=== PATIENT | male | born 1990 | race African-American/Black ===

== ENCOUNTER 2018-01-29 14:56 | Inpatient (IN) | payer MEDICAID, OTHER ==
[2018-01-29 16:20] LABS: ADD MAN DIFF? NO
[2018-01-29 16:27] LABS: BASOPHIL # 0.2 10^3/ul (0.0-0.1); BASOPHILS % 1.9 % (0.0-2.0); EOSINOPHILS # 0.2 10^3/ul (0.0-0.5); EOSINOPHILS % 1.7 % (0.0-7.0); HEMATOCRIT 32.3 % (42.0-52.0); LYMPHOCYTES # 1.4 10^3/ul (0.8-2.9); LYMPHOCYTES % 15.4 % (15.0-51.0); MEAN CORPUSCULAR HEMOGLOBIN 25.8 pg (29.0-33.0); MEAN CORPUSCULAR VOLUME 83.5 fl (82.0-101.0); MEAN PLATELET VOLUME 11.7 fl (7.4-10.4); MONOCYTE # 0.9 10^3/ul (0.3-0.9); MONOCYTES % 9.5 % (0.0-11.0); NEUTROPHIL # 6.5 10^3/ul (1.6-7.5); NEUTROPHILS % 71.3 % (39.0-77.0); PLATELET COUNT 255 10^3/UL (140-415); RED BLOOD COUNT 3.87 10^6/ul (4.70-6.10); RED CELL DISTRIBUTION WIDTH 14.7 % (11.5-14.5)
[2018-01-29 16:27] LABS: WHITE BLOOD COUNT 9.2 10^3/ul (4.8-10.8)
[2018-01-29] MEDS: ASPIRIN 325 MG TAB PO (16:41)
[2018-01-29] MEDS: NITROGLYCERIN 2% 1 GM OINT PKT TD (16:41)
[2018-01-29 16:43] LABS: ALANINE AMINOTRANSFERASE 23 IU/L (13-69); ALBUMIN 4.2 g/dl (3.3-4.9); ALKALINE PHOSPHATASE 72 IU/L (42-121); ANION GAP 13 (8-16); ASPARTATE AMINO TRANSFERASE 22 IU/L (15-46); BILIRUBIN,INDIRECT 0.1 mg/dl (0-1.1); BILIRUBIN,TOTAL 0.1 mg/dl (0.2-1.3); BLOOD UREA NITROGEN 55 mg/dl (7-20); CALCIUM 7.9 mg/dl (8.4-10.2); CARBON DIOXIDE 23 mmol/L (21-31); CHLORIDE 113 mmol/L (97-110); CREATINE KINASE 564 IU/L (23-200); GLUCOSE 100 mg/dl (70-220); SODIUM 145 mmol/L (135-144); TOTAL PROTEIN 7.2 g/dl (6.1-8.1)
[2018-01-29 16:46] LABS: INR 0.93; PROTIME 12.6 Sec (11.9-14.9)
[2018-01-29 16:47] LABS: PARTIAL THROMBOPLASTIN TIME 26.8 Sec (25.0-35.0)
[2018-01-29 16:55] LABS: B-TYPE NATRIURETIC PEPTIDE 12500 PG/ML (0-125); CK INDEX 0.6; CK-MB 3.33 ng/ml (0.0-2.4); TROPONIN-I 0.074 ng/ml (0.000-0.120)
[2018-01-29 16:58] LABS: ETHANOL < 10.0 mg/dl
[2018-01-29 16:59] LABS: D-DIMER 674.44 ng/ml (<460)
[2018-01-29 17:14] LABS: AMPHETAMINE/METHAMPHETAMINE Negative (NEGATIVE); BARBITURATES Negative (NEGATIVE); BENZODIAZEPINES Negative (NEGATIVE); CANNABINOIDS Negative (NEGATIVE); COCAINE Negative (NEGATIVE); OPIATES Negative (NEGATIVE)
[2018-01-29 17:16] LABS: LACTIC ACID 0.9 mmol/L (0.5-2.0)
[2018-01-29 17:30] LABS: HDL CHOLESTEROL 38 mg/dl (30-63); LDL CHOLESTEROL,CALCULATED 107 mg/dl; TRIGLYCERIDES 242 mg/dl (0-149)
[2018-01-29 17:30] LABS: CHOLESTEROL 193 mg/dl (100-200)
[2018-01-29] MEDS: LABETALOL HCL 20MG INJ IV (17:41)
[2018-01-29 18:23] LABS: ADD UMIC YES; UR ASCORBIC ACID NEGATIVE (NEGATIVE); UR BACTERIA FEW /HPF (NONE SEEN); UR BILIRUBIN (Dip) NEGATIVE (NEGATIVE); UR BLOOD (Dip) 1+ mg/dL (NEGATIVE); UR CLARITY CLEAR (CLEAR); UR COLOR STRAW (YELLOW); UR GLUCOSE (Dip) 1+ mg/dL (NEGATIVE); UR KETONES (Dip) NEGATIVE (NEGATIVE); UR LEUKOCYTE ESTERASE (Dip) NEGATIVE Leu/ul (NEGATIVE); UR NITRITE (Dip) NEGATIVE (NEGATIVE); UR RBC 0 /HPF (0-5); UR TOTAL PROTEIN (Dip) 3+ mg/dl (NEGATIVE); UR UROBILINOGEN (Dip) NEGATIVE (NEGATIVE); UR WBC 2 /HPF (0-5)
[2018-01-29] MEDS ORDERED: ONDANSETRON 4 MG INJ IV (18:30)
[2018-01-29] MEDS: ACETAMINOPHEN 325 MG TAB PO (18:46)
[2018-01-29] MEDS ORDERED: BISACODYL (EC) 5 MG TAB PO (23:00)
[2018-01-29] MEDS ORDERED: ONDANSETRON 4 MG TAB PO (23:00)
[2018-01-29] MEDS ORDERED: NACL 0.9% 3 ML SYG IV (23:00)
[2018-01-29] MEDS ORDERED: DOCUSATE SODIUM 100 MG CAP PO (23:00)
[2018-01-29] MEDS: hydrALAzine 20 MG INJ IV (23:36)
[2018-01-30] MEDS: hydrALAzine 20 MG INJ IV ×2 (05:07→10:55)
[2018-01-30 05:32] LABS: ADD MAN DIFF? NO
[2018-01-30 05:40] LABS: WHITE BLOOD COUNT 9.6 10^3/ul (4.8-10.8)
[2018-01-30 05:40] LABS: BASOPHIL # 0.1 10^3/ul (0.0-0.1); BASOPHILS % 1.5 % (0.0-2.0); EOSINOPHILS # 0.1 10^3/ul (0.0-0.5); EOSINOPHILS % 0.8 % (0.0-7.0); HEMATOCRIT 31.2 % (42.0-52.0); HEMOGLOBIN 9.8 g/dl (14.0-18.0); LYMPHOCYTES # 1.2 10^3/ul (0.8-2.9); LYMPHOCYTES % 12.3 % (15.0-51.0); MEAN CORPUSCULAR HEMOGLOBIN 26.4 pg (29.0-33.0); MEAN CORPUSCULAR HGB CONC 31.4 g/dl (32.0-37.0); MEAN CORPUSCULAR VOLUME 84.1 fl (82.0-101.0); MEAN PLATELET VOLUME 12.5 fl (7.4-10.4); MONOCYTE # 0.8 10^3/ul (0.3-0.9); MONOCYTES % 8.3 % (0.0-11.0); NEUTROPHIL # 7.4 10^3/ul (1.6-7.5); NEUTROPHILS % 76.9 % (39.0-77.0); PLATELET COUNT 254 10^3/UL (140-415); RED BLOOD COUNT 3.71 10^6/ul (4.70-6.10); RED CELL DISTRIBUTION WIDTH 14.7 % (11.5-14.5)
[2018-01-30 05:43] LABS: HEMOGLOBIN A1C 4.8 % (0-5.9)
[2018-01-30 05:57] LABS: ALANINE AMINOTRANSFERASE 19 IU/L (13-69); ALBUMIN/GLOBULIN RATIO 1.33; ALKALINE PHOSPHATASE 74 IU/L (42-121); ANION GAP 10 (8-16); ASPARTATE AMINO TRANSFERASE 22 IU/L (15-46); BLOOD UREA NITROGEN 57 mg/dl (7-20); CALCIUM 8.1 mg/dl (8.4-10.2); CARBON DIOXIDE 24 mmol/L (21-31); CHLORIDE 115 mmol/L (97-110); CHOL/HDL RATIO 5.2 RATIO; CHOLESTEROL 189 mg/dl (100-200); CREATINE KINASE 407 IU/L (23-200); CREATININE 8.06 mg/dl (0.61-1.24); GLUCOSE 98 mg/dl (70-220); HDL CHOLESTEROL 36 mg/dl (30-63); LDL CHOLESTEROL,CALCULATED 113 mg/dl; MAGNESIUM 1.7 mg/dl (1.7-2.5); PHOSPHORUS 5.5 mg/dl (2.5-4.9); POTASSIUM 4.3 mmol/L (3.5-5.1); SODIUM 145 mmol/L (135-144); TRIGLYCERIDES 201 mg/dl (0-149)
[2018-01-30 06:09] LABS: CK INDEX 0.6; TROPONIN-I 0.079 ng/ml (0.000-0.120)
[2018-01-30] MEDS: ACETAMINOPHEN 325 MG TAB PO ×2 (06:33→20:34)
[2018-01-30 07:10] LABS: OSMOLALITY 314 mOsm/kg (280-295)
[2018-01-30 08:14] LABS: IRON 45 ug/dl (35-150)
[2018-01-30] MEDS: morphine 2 MG INJ IV (08:16)
[2018-01-30 08:26] LABS: % IRON SATURATION 14 % SAT (22-52); TOTAL IRON BINDING CAPACITY 313 ug/dl (241-421)
[2018-01-30 08:31] LABS: UR RBC 0 /HPF (0-5); UR WBC 1 /HPF (0-5)
[2018-01-30 08:59] LABS: SODIUM,URINE RANDOM 94 mmol/L (30-90)
[2018-01-30 09:57] LABS: CREATINE KINASE 417 IU/L (23-200)
[2018-01-30 10:08] LABS: CK INDEX 0.6; CK-MB 2.35 ng/ml (0.0-2.4)
[2018-01-30 11:20] LABS: ADD UMIC YES; UR ASCORBIC ACID NEGATIVE (NEGATIVE); UR BILIRUBIN (Dip) NEGATIVE (NEGATIVE); UR BLOOD (Dip) NEGATIVE (NEGATIVE); UR CLARITY CLEAR (CLEAR); UR COLOR STRAW (YELLOW); UR GLUCOSE (Dip) 1+ mg/dL (NEGATIVE); UR KETONES (Dip) NEGATIVE (NEGATIVE); UR LEUKOCYTE ESTERASE (Dip) NEGATIVE Leu/ul (NEGATIVE); UR NITRITE (Dip) NEGATIVE (NEGATIVE); UR RBC 0 /HPF (0-5); UR SPECIFIC GRAVITY (Dip) 1.009 (1.003-1.030); UR TOTAL PROTEIN (Dip) 3+ mg/dl (NEGATIVE); UR UROBILINOGEN (Dip) NEGATIVE (NEGATIVE); UR WBC 2 /HPF (0-5)
[2018-01-30 11:32] LABS: CREATININE,URINE RANDOM 80.92 mg/dl (20-370)
[2018-01-30 11:32] LABS: SODIUM,URINE RANDOM 83 mmol/L (30-90)
[2018-01-30] MEDS: NIFEdipine (XL) 60 MG TAB PO ×2 (12:16→20:33)
[2018-01-30 12:20] LABS: OSMOLALITY,URINE 302 mOsm/kg (250-1200)
[2018-01-30] MEDS ORDERED: NITROGLYCERIN (SL) 0.4 MG TAB SL (18:30)
[2018-01-31 07:36] LABS: ADD MAN DIFF? NO
[2018-01-31 07:42] LABS: WHITE BLOOD COUNT 9.1 10^3/ul (4.8-10.8)
[2018-01-31 07:42] LABS: BASOPHIL # 0.2 10^3/ul (0.0-0.1); BASOPHILS % 1.8 % (0.0-2.0); EOSINOPHILS # 0.4 10^3/ul (0.0-0.5); EOSINOPHILS % 4.4 % (0.0-7.0); HEMATOCRIT 33.3 % (42.0-52.0); HEMOGLOBIN 10.3 g/dl (14.0-18.0); LYMPHOCYTES # 1.8 10^3/ul (0.8-2.9); LYMPHOCYTES % 19.6 % (15.0-51.0); MEAN CORPUSCULAR HEMOGLOBIN 25.9 pg (29.0-33.0); MEAN CORPUSCULAR HGB CONC 30.9 g/dl (32.0-37.0); MEAN CORPUSCULAR VOLUME 83.7 fl (82.0-101.0); MEAN PLATELET VOLUME 12.5 fl (7.4-10.4); MONOCYTE # 0.9 10^3/ul (0.3-0.9); MONOCYTES % 9.9 % (0.0-11.0); NEUTROPHIL # 5.8 10^3/ul (1.6-7.5); PLATELET COUNT 267 10^3/UL (140-415); RED BLOOD COUNT 3.98 10^6/ul (4.70-6.10); RED CELL DISTRIBUTION WIDTH 14.6 % (11.5-14.5)
[2018-01-31] MEDS: NIFEdipine (XL) 60 MG TAB PO ×2 (08:11→21:20)
[2018-01-31 08:22] LABS: CREATINE KINASE 252 IU/L (23-200)
[2018-01-31 08:27] LABS: ANION GAP 15 (8-16)
[2018-01-31 08:30] LABS: CK INDEX 0.7; CK-MB 1.78 ng/ml (0.0-2.4)
[2018-01-31 08:35] LABS: TROPONIN-I 0.041 ng/ml (0.000-0.120)
[2018-01-31 08:38] LABS: BLOOD UREA NITROGEN 60 mg/dl (7-20); CALCIUM 8.5 mg/dl (8.4-10.2); CARBON DIOXIDE 20 mmol/L (21-31); CHLORIDE 111 mmol/L (97-110); GLUCOSE 103 mg/dl (70-220); SODIUM 142 mmol/L (135-144)
[2018-01-31 08:39] LABS: MAGNESIUM 1.5 mg/dl (1.7-2.5); PHOSPHORUS 5.9 mg/dl (2.5-4.9)
[2018-01-31] MEDS: MAGNESIUM OXIDE 400 MG TAB PO (10:33)
[2018-01-31] MEDS: SEVELAMER CARBONATE 800 MG TABLET PO ×2 (11:17→17:36)
[2018-01-31 18:22] LABS: CREATININE, RANDOM URINE 103 mg/dL (20-370); MICROALBUMIN 145.6 mg/dL; MICROALBUMIN/CREATININE RATIO 1414 (<30)
[2018-02-01 07:27] LABS: ANION GAP 17 (8-16); BLOOD UREA NITROGEN 64 mg/dl (7-20); CALCIUM 8.4 mg/dl (8.4-10.2); CARBON DIOXIDE 20 mmol/L (21-31); CHLORIDE 109 mmol/L (97-110); CREATININE 7.96 mg/dl (0.61-1.24); GLUCOSE 95 mg/dl (70-220); MAGNESIUM 1.6 mg/dl (1.7-2.5); PHOSPHORUS 6.8 mg/dl (2.5-4.9); POTASSIUM 4.4 mmol/L (3.5-5.1); SODIUM 142 mmol/L (135-144)
[2018-02-01] MEDS: SEVELAMER CARBONATE 800 MG TABLET PO (08:57)
[2018-02-01] MEDS: NIFEdipine (XL) 60 MG TAB PO (08:58)
[2018-02-01] MEDS ORDERED: SEVELAMER CARBONATE 800 MG TABLET PO (12:00)
[2018-02-01] MEDS: REGADENOSON 0.4 MG/5 ML SYG (13:25)
== END 2018-02-01 15:26 | disposition home or self-care (01) | DRG 292 ==
LOC: MS4 20:50 → E/R 14:56 → MS4 18:23
DX: I13.2 Hypertensive heart and chronic kidney disease with heart failure and with stage 5 chronic kidney disease, or end stage renal disease (principal); I16.1 Hypertensive emergency; N17.9 Acute kidney failure, unspecified; N18.5 Chronic kidney disease, stage 5; I50.22 Chronic systolic (congestive) heart failure; E87.0 Hyperosmolality and hypernatremia; E83.42 Hypomagnesemia; D64.9 Anemia, unspecified; F17.210 Nicotine dependence, cigarettes, uncomplicated; F32.9 Major depressive disorder, single episode, unspecified; D63.1 Anemia in chronic kidney disease; I16.0 Hypertensive urgency; E66.9 Obesity, unspecified; Z68.39 Body mass index [BMI] 39.0-39.9, adult; Z91.14 Patient's other noncompliance with medication regimen
CPT/HCPCS: 36415; 71045; 76775; 78452; 78582; 80048; 80053; 80061; 80307; 81001; 81003; 82043; 82550; 82553; 83036; 83540; 83605; 83735; 83880; 83930; 83935; 84100; 84155; 84300; 84443; 84484; 85025; 85378; 85610; 85730; 93005; 93017; 93306; 93970; 96374; 99291-25